=== PATIENT | female | born 1970 | race Caucasian/White ===

== ENCOUNTER → 2019-03-27 | Outpatient (CLI) | payer OTHER ==
--- NOTE | 2019-03-27 08:31 | RAD ---
Examination: Ultrasound abdomen limited HISTORY: History of abdominal pain COMPARISON: None available. FINDINGS: The visualized pancreas grossly appears unremarkable. No evidence of gallstones identified. The gallbladder wall thickness measures 1.9 mm. The liver length measures 16.6 cm. The right kidney measures 11.7 cm in length. The aorta, IVC within normal limits of dimension. IMPRESSION: Unremarkable visualized exam. Electronically signed by: Swapnil Gonzalez MD (03/27/2019 8:28 AM) [place] [id number]
== END | disposition home or self-care (01) ==
LOC: US 07:37
PROVIDERS: ATTEND Registered Nurse
DX: R10.9 Unspecified abdominal pain (principal)
CPT/HCPCS: 76705

== ENCOUNTER → 2020-04-22 | Outpatient (CLI) | payer OTHER ==
--- NOTE | 2020-04-22 08:48 | RAD ---
ABDOMEN COMPLETE History: Epigastric abdominal pain Comparison: None. Findings: Multiple sonographic images of the abdomen are submitted. Gallbladder is present without demonstrable intraluminal abnormality, wall thickening, or pericholecystic fluid. Hepatic echotexture is within normal limits, no focal hepatic lesion demonstrated. Right lobe of the liver measured 15 cm longitudinal. There is segmental visualization of the inferior vena cava. Abdominal aortic caliber is within normal limits up to 2 cm near the mid segment, some scattered plaque. No abnormality is demonstrated of the pancreas. Spleen measured about 10 cm. Right kidney measured 10.4 x 5.6 x 4.3 cm, no hydronephrosis. Left kidney measured 10.6 x 4.4 x 4.4 cm, no hydronephrosis. Impression: 1. No significant abnormality is demonstrated. Electronically signed by: Home Zambrano MD (04/22/2020 8:46 AM) [id number]
== END | disposition home or self-care (01) ==
LOC: US 07:36
PROVIDERS: ATTEND Physician Assistant
DX: R10.13 Epigastric pain (principal)
CPT/HCPCS: 76700

== ENCOUNTER → 2020-04-26 | Outpatient (CLI) | payer OTHER ==
[~2020-04-26] MED LIST: IOHEXOL 240 MG/ML 50ML VIAL. ONE; IOHEXOL 240 MG/ML 50ML VIAL. PO ONE; IOHEXOL 300 MG/ML 75 ML VIAL. IV ONE
--- NOTE | 2020-04-26 14:33 | RAD ---
CT abdomen and pelvis with contrast HISTORY: Epigastric pain, nausea vomiting, constipation, leukocytosis COMPARISON: None TECHNIQUE: Computed tomographic imaging of the abdomen and pelvis was performed following the uneventful intravenous administration of 75 cc Isovue-370 contrast material. PQRS Compliance Statement: One or more of the following individualized dose reduction techniques were utilized for this examination: 1. Automated exposure control 2. Adjustment of the mA and/or kV according to patient size 3. Use of iterative reconstruction technique FINDINGS: Lung bases are clear. Liver tiny 3 mm low-density lesion image #24 and the medial aspect of segment 6. Otherwise negative Gallbladder negative Spleen negative Adrenal glands negative Pancreas negative 2 mm calculus lower pole right kidney and 4 mm calculus mid right kidney. No hydronephrosis Left kidney 1 mm calculus lower pole. No hydronephrosis. Normal appendix Small right ovarian cyst. Uterus and left ovary unremarkable Bladder unremarkable 7 advanced L4-5 and to a lesser degree L5-S1 disc degeneration with posterior bulge that causes moderate L4-5 and mild L5-S1 central stenosis. IMPRESSION: Small bilateral renal calculi with no hydronephrosis Advanced degenerative disc disease especially at L4-5 with moderate central stenosis. Right ovarian cystic lesion. Follow-up with ultrasound might be of benefit for further clarification. Electronically signed by: Nemesio Stern MD (04/26/2020 2:30 PM) [id number]
== END | disposition home or self-care (01) ==
LOC: CT 08:40
PROVIDERS: ATTEND Physician Assistant
DX: N20.0 Calculus of kidney (principal); D72.829 Elevated white blood cell count, unspecified; N83.291 Other ovarian cyst, right side; M51.37 Other intervertebral disc degeneration, lumbosacral region; M48.07 Spinal stenosis, lumbosacral region
CPT/HCPCS: 74177; Q9966; Q9967

== ENCOUNTER → 2021-03-08 | Outpatient (CLI) | payer BC ==
[~2021-03-08] MED LIST changes: -IOHEXOL 240 MG/ML 50ML VIAL. PO ONE
--- NOTE | 2021-03-08 09:17 | RAD ---
EXAM: CT ABDOMEN/PELVIS WITH AND WITHOUT CONTRAST. HISTORY: Gross hematuria. TECHNIQUE: Computed tomography of the abdomen and pelvis was performed before and after the intraveno us administration of iodinated contrast. One or more of the following individualized dose reduction t echniques were utilized for this examination: 1. Automated exposure control. 2. Adjustment of the mA and/or kV according to patient size. 3. Use of iterative reconstruction technique. COMPARISON: 04/26/2020. FINDINGS: Lung windows through the visualized portions of the bases reveal no abnormality. Bone windo ws reveal no suspicious lesions. A calculus in the right renal interpolar region measures 5 mm. Another tiny calculus in the right low er pole measures <2 mm. There are no left renal or ureteral calculi. No renal mass is identified bila terally. Urographic phase images were not obtained. Both ureters and collecting systems appear normal and no urothelial lesions are seen. The bladder is unremarkable by CT. A 6 mm hypoattenuating focus medially in hepatic segment 6 is stable and likely benign. The gallbladd er, pancreas, adrenal glands and spleen are unremarkable. There are no pathologically enlarged lymph nodes. The appendix is not inflamed. There is no small bowel obstruction. IMPRESSION: 1. Right renal calculi measure 5 mm and <2 mm. No ureteral calculi. No solid renal lesions or clear u rothelial lesions. Recommend ongoing follow-up/management for hematuria. Electronically signed by: Kera Morris MD (03/08/2021 9:15 AM) [id number]
== END ==
LOC: CT 08:02
PROVIDERS: ATTEND Urology
DX: N20.0 Calculus of kidney (principal); R31.0 Gross hematuria
CPT/HCPCS: 74178